=== PATIENT | male | born 1940 | race Caucasian/White ===

== ENCOUNTER → 2020-10-20 | Outpatient (CLI) | payer MEDICARE | END | disposition home or self-care (01) | LOC: CFH 09:11 | PROVIDERS: ATTEND Internal Medicine | DX: M47.815 Spondylosis without myelopathy or radiculopathy, thoracolumbar region (principal); M47.818 Spondylosis without myelopathy or radiculopathy, sacral and sacrococcygeal region; M43.8X5 Other specified deforming dorsopathies, thoracolumbar region | CPT/HCPCS: 72120; 72170 ==

== ENCOUNTER → 2020-11-16 | Outpatient (CLI) | payer MEDICARE ==
[~2020-11-16] MED LIST: OMNIPAQUE 350 MG/ML, 100ML BOTTLE ONE
== END | disposition home or self-care (01) ==
LOC: CFH 11:22
PROVIDERS: ATTEND Internal Medicine
DX: N20.0 Calculus of kidney (principal); R63.4 Abnormal weight loss
CPT/HCPCS: 74177; 82565; Q9967

== ENCOUNTER 2021-01-10 14:37 | Day surgery (SDC) | payer MEDICARE ==
[~2021-01-10] VITALS: Ht 182.9 cm; Wt 81.8 kg
[2021-01-10] MEDS ORDERED: LACTATED RINGERS 1,000 ML IV SCH (15:00)
[2021-01-10] MEDS ORDERED: CHLORHEXIDINE 15 ML UDC PO ONE (15:00)
[2021-01-10 15:54] LABS: BASOPHILS % (AUTO) 1 % (0-1); EOSINOPHILS % (AUTO) 2 % (1-7); LYMPHOCYTES % (AUTO) 11 % (22-44); MEAN CORPUSCULAR HEMOGLOBIN 29.6 pg (27.5-34.5); MEAN CORPUSCULAR HGB CONC 32.6 g/dL (33.2-36.2); MEAN PLATELET VOLUME 6.7 fL (7.4-10.4); MONOCYTES % (AUTO) 6 % (2-9); NEUTROPHILS % (AUTO) 80 % (42-75); PLATELET COUNT 399 x10^3/uL (130-400); RED BLOOD COUNT 4.15 x10^6/uL (4.38-5.82); RED CELL DISTRIBUTION WIDTH 13.8 % (9.4-14.8)
[2021-01-10 15:57] LABS: ALANINE AMINOTRANSFERASE 31 U/L (12-78); ALBUMIN 2.9 g/dL (3.4-5.0); ANION GAP 9 mmol/L (5-15); CALCIUM 9.7 mg/dL (8.5-10.1); CHLORIDE 107 mmol/L (98-107); CREATININE 1.71 mg/dL (0.7-1.3)
[2021-01-10 15:59] LABS: ALKALINE PHOSPHATASE 73 U/L (45-117); BILIRUBIN,TOTAL 0.3 mg/dL (0.2-1.0); TOTAL PROTEIN 7.5 g/dL (6.4-8.2)
[2021-01-10 16:06] LABS: INTERNATIONAL NORMALIZED RATIO 0.99 (0.93-1.1); PROTHROMBIN TIME 10.6 Seconds (9.6-11.5)
[2021-01-10] MEDS ORDERED: ALLO100T30 PO (16:06)
[2021-01-10] MEDS ORDERED: AMLO-211 PO (16:06)
[2021-01-10] MEDS ORDERED: [UNRECOGNIZED DRUG - OTHER] IV (16:17)
[2021-01-10] MEDS ORDERED: LOSA100T14 PO (16:17)
[2021-01-10] MEDS ORDERED: TAMS-11 PO (16:17)
[2021-01-10] MEDS ORDERED: MIRA50TA PO (16:17)
[2021-01-10] MEDS ORDERED: PRAV80TA2 PO (16:17)
[2021-01-10 16:28] VITALS: BP 149/78
[2021-01-10 16:41] LABS: MICROSCOPIC INDICATED
[2021-01-10] MEDS ORDERED: OMNIPAQUE 350 MG/ML, 50 ML BOTTLE ONE (16:55)
[2021-01-10] MEDS ORDERED: ONDANSETRON 2MG/ML, 2ML IVPush PRN (17:00)
[2021-01-10] MEDS ORDERED: EPHEDRINE 50 MG/ML, 1ML IVPush PRN (17:00)
[2021-01-10] MEDS ORDERED: MEPERIDINE/PF 25MG/0.5ML IVPush PRN (17:00)
[2021-01-10] MEDS ORDERED: PROMETHAZINE 25 MG/ML, 1ML IVPush PRN (17:00)
[2021-01-10] MEDS ORDERED: hydrALAzine 20 MG/ML, 1ML IV PRN (17:00)
[2021-01-10] MEDS ORDERED: HYDROmorphone 1 MG/ML, 1ML INJ IVPush PRN (17:00)
[2021-01-10] MEDS ORDERED: LABETALOL 5MG/ML, 20ML IV PRN (17:00)
[2021-01-10] MEDS ORDERED: OXYcodone 5 MG/5 ML ORAL.SOL UDC PO PRN (17:00)
[2021-01-10] MEDS ORDERED: ACETAMINOPHEN 325 MG TABLET PO PRN (17:00)
[2021-01-10] MEDS ORDERED: FENTANYL PF 250 MCG/5ML ONE (17:02)
[2021-01-10] MEDS ORDERED: PROPOFOL 10 MG/ML, 20ML ONE (17:08)
[2021-01-10] MEDS ORDERED: SUCCINYLCHOLINE 20 MG/ML, 10ML ONE (17:08)
[2021-01-10] MEDS ORDERED: DEXAMETHASONE 4 MG/ML, 5ML ONE (17:08)
[2021-01-10] MEDS ORDERED: ROCURONIUM 10MG/ML,5ML ONE (17:08)
[2021-01-10] MEDS ORDERED: LIDOCAINE-MPF 2% ,5ML ONE (17:08)
[2021-01-10] MEDS ORDERED: ONDANSETRON 2MG/ML, 2ML ONE (17:08)
[2021-01-10] MEDS ORDERED: CEFAZOLIN 1,000 MG ONE (17:08)
[2021-01-10] MEDS ORDERED: SUGAMMADEX 200 MG/2 ML IVPush ONE (18:44)
[2021-01-10] MEDS ORDERED: FENTANYL PF 100 MCG/2ML ONE (19:09)
[2021-01-10] MEDS: FENTANYL PF 100 MCG/2ML IV PRN ×2 (19:10→19:17)
[2021-01-10] MEDS ORDERED: hydrALAzine 20 MG/ML, 1ML ONE (19:35)
[2021-01-10] MEDS ORDERED: D5%-0.45% NACL 1,000 ML IV ONE (20:00)
[2021-01-10] MEDS ORDERED: LABETALOL 5MG/ML, 20ML ONE (20:11)
[2021-01-10] MEDS ORDERED: D5%-0.45% NACL 1,000 ML IV SCH (20:30)
[2021-01-10] MEDS ORDERED: ACETAMINOPHEN 650 MG/20.3 ML UDC ONE (20:58)
[2021-01-10] MEDS ORDERED: OXYcodone 5 MG/5 ML ORAL.SOL UDC ONE (20:58)
== END 2021-01-10 21:50 | disposition home or self-care (01) ==
LOC: OR 14:37 → OUT 21:50
PROVIDERS: ATTEND Urology
DX: N20.0 Calculus of kidney (principal); N52.9 Male erectile dysfunction, unspecified; N40.1 Benign prostatic hyperplasia with lower urinary tract symptoms; R35.0 Frequency of micturition; R35.1 Nocturia; Z20.822 Contact with and (suspected) exposure to COVID-19; Z79.01 Long term (current) use of anticoagulants; Z79.899 Other long term (current) drug therapy; Z85.46 Personal history of malignant neoplasm of prostate; Z87.440 Personal history of urinary (tract) infections
CPT/HCPCS: 36415; 52356; 74420; 80053; 81001; 82360; 85025; 85610; 87077; 87086; 87186; 87635; 88300; 93005; C1758; C1769; C2617; J0330; J0360; J0690; J1100; J2405; J2704; J3010; J7120; Q9967